=== PATIENT | male | born 1945 | race Caucasian/White ===

== ENCOUNTER 2018-01-30 05:29 | Day surgery (SDC) | payer MEDICARE, OTHER ==
[~2018-01-30] VITALS: Ht 177.8 cm; Wt 70.3 kg
[~2018-01-30 05:29] MED LIST: ALBU90OI INH; Amlodipine-Ben1 EAC1 PO; DONE10 PO; FLONASE SENSIM9.9 ML; LOVA40 PO; TERA5 PO; VITAMIN B122500 MCG PO
== END 2018-01-30 23:08 | disposition home or self-care (01) ==
LOC: ORSCMMR 05:29 → ORD 07:30 → ORSCMMR 23:08
PROVIDERS: Surgery
PROC: 0YU50JZ Supplement Right Inguinal Region with Synthetic Substitute, Open Approach (ICD-10-PCS; principal; 2018-01-30 07:30)
DX: K40.90 Unilateral inguinal hernia, without obstruction or gangrene, not specified as recurrent (principal); I10 Essential (primary) hypertension; J44.9 Chronic obstructive pulmonary disease, unspecified; F17.210 Nicotine dependence, cigarettes, uncomplicated; Z79.899 Other long term (current) drug therapy
CPT/HCPCS: C1781; J0690; J2250; J3010; J7120

== ENCOUNTER 2020-03-13 15:20 | Inpatient (IN) | payer OTHER ==
[~2020-03-13] VITALS: Ht 177.8 cm; Wt 55.8 kg
[~2020-03-13 15:20] MED LIST changes: -LOVA40 PO; +Lovastatin20 MG PO
[2020-03-13 16:13] LABS: BASOPHILS ABSOLUTE AUTO 0.03 K/mm3 (0.00-0.23); BASOPHILS PERCENT AUTO 0 % (0-2); EOSINOPHILS ABSOLUTE AUTO 0.13 K/mm3 (0.00-0.68); EOSINOPHILS PERCENT AUTO 2 % (0-6); Hemoglobin 11.8 g/dL (13.5-17.5); IMMATURE GRAN ABSOLUTE AUTO 0.02 K/mm3 (0.00-0.10); IMMATURE GRAN PERCENT AUTO 0 % (0-1); LYMPHOCYTES ABSOLUTE AUTO 0.89 K/mm3 (0.84-5.20); LYMPHOCYTES PERCENT AUTO 11 % (21-46); MONOCYTES ABSOLUTE AUTO 0.73 K/mm3 (0.16-1.47); MONOCYTES PERCENT AUTO 9 % (4-13); Mean Corpuscular HGB 30.6 pg (26.0-34.0); Mean Corpuscular HGB Conc 31.1 g/dL (31.5-36.5); Mean Corpuscular Volume 99 fL (80-100); Mean Platelet Volume 10.1 fL (9.1-12.4); NEUTROPHILS ABSOLUTE AUTO 6.66 K/mm3 (1.96-9.15); NEUTROPHILS PERCENT AUTO 79 % (41-73); Platelet Count 255 K/mm3 (150-400); RDW Coefficient Variation 13.6 % (11.7-14.2); Red Blood Cell Count 3.85 M/mm3 (4.30-5.90); White Blood Cell Count 8.46 K/mm3 (4.00-11.30)
[2020-03-13 16:33] LABS: Alanine Aminotransfer (ALT/SGP 24 U/L (12-78); Albumin, Blood 3.2 g/dL (3.4-5.0); Alk Phos 91 U/L (50-136); Anion Gap 1 mmol/L (6-16); Aspartate Aminotrans (AST/SGOT 22 U/L (12-37); Bilirubin, Total 0.5 mg/dL (0.1-1.0); Blood Urea Nitrogen 21 mg/dL (8-24); Bun/Creatinine Ratio 25.8 (12.0-20.0); CO2, Blood 37 mmol/L (21-32); Calcium, Blood 8.6 mg/dL (8.5-10.1); Chloride, Blood 104 mmol/L (98-108); Creatinine, Blood 0.81 mg/dL (0.60-1.20); Globulin, Blood 3.3 g/dL (2.2-4.0); Glomerular Filtration Rate >60 (60-); Glucose, Blood 98 mg/dL (70-99); Potassium, Blood 4.2 mmol/L (3.5-5.5); Sodium, Blood 142 mmol/L (136-145); Total Protein, Blood 6.5 g/dL (6.4-8.2)
[2020-03-13] MEDS ORDERED: Primidone50 MG PO (19:24)
[2020-03-13 20:43] LABS: PCO2 Arterial 65.9 mmHg (35-45); PO2 Arterial 65.7 mmHg (80-100); pH Blood Arterial 7.35 (7.35-7.45)
[2020-03-13] MEDS ORDERED: ALBU2.5V5 INH (22:23)
--- NOTE | 2020-03-13 22:51 | NUR ---
CALLED DEBBY, PT'S AND COMPLETED ADMISSION.
--- NOTE | 2020-03-13 23:28 | NUR ---
PT NEW ADMIT FROM ER. PT ARRIVED VIA STRETCHER TO UNIT AT 2000. AUDIBLE WHEEZES AND CONGESTION HEARD WITHOUT THE STETHOSCOPE. PT BREATHING RATE AROUND 18 BREATHS PER MIN. PT ARRIVED TO UNIT WITH 2 L O2 VIA NASAL CANNULA. PT RECIEVED LASIX IV IN THE ER. PT NOTED TO HAVE URINE URGENCY. I PROVIDED PT A URINAL HE APPEARED TOO WEAK TO AMBULATE TO BATHROOM. PT STOOD AT EDGE OF BED AT THIS TIME TO USE URINAL. PT'S HANDS TREMBLES AND WEAK TO HOLD URINAL. PT ASSISTED TO LAY BACK IN BED. PT'S OXYGEN DESATTED TO AROUND 68% TO LOW 70% I INCREASED PT O2 TO 4L. O2 CAME UP TO ONLY HIGH 70'S AND DYSPENIC. GAME AGENT- YESENIA NOTIFIED. VITALS TAKEN. PT'S O2 IN THE MID 80'S. RAPID RESPONSIVE TEAM CALLED AT 2027. NEB TREATMENT GIVEN WITH 4L VIA NC. HOSPITALISTAngely SPEAR ORDERED SOLUMETEROL AND BIPAP. PT BREATHING RATE AROUND 17 BREATHS PER MIN AFTER NEB TREATMENT GIVEN. O2 SAT CAME UP TO THE LOW 90'S. PT CONSTANTLY HAVE TO URINATE AND HAS TRIED TO GET UP FROM BED MULTIPLE TIMES. REDIRECTION AND RE-ASSURANCE PROVIDED. BED ALARM ON SINCE ADMISSION. WILL CONTINUE TO MONITOR.
[2020-03-14 02:42] LABS: Source, Urine Clean Catch
[2020-03-14 02:45] LABS: Bilirubin, Urine Neg (Neg); Blood, Urine 5+ (Neg); Glucose Qualitative, Urine Neg (Neg); Ketones, Urine Neg (Neg); Leukocyte Esterase, Urine Neg (Neg); Nitrite, Urine Neg (Neg); Protein, Urine 2+ (Neg); Urobilinogen, Urine NORM (Normal)
[2020-03-14 03:00] LABS: Appearance, Urine Hazy (Clear); Color, Urine Yellow (P-Yellow)
[2020-03-14 03:03] LABS: Amorphous Light (0-Heavy); Red Blood Cells, Urine 50-100 /hpf (0-2); Squamous Epithelial Cells Not Seen /hpf (Few)
[2020-03-14 03:05] LABS: Bacteria Few /hpf; White Blood Cells, Urine 0-2 /hpf (0-5)
--- NOTE | 2020-03-14 04:08 | NUR ---
SPECIAL WEAPONS UNIT OFFICER SUMMARY PT A/O X1 TO SELF. OCCASIONAL HALLCINATION. PT ONE TIME POINTED TOWARDS THE WALL AND ASKED "WHO IS HE?" WHEN THERE WAS NOBODY THERE. OFTEN CONFUSED AND FIGITY. PT HAS PULLED OFF CONT BIOX MULTIPLE TIMES AND HAS ATTEMPTED TO TAKE OFF MASK FREQUENLTY.
[2020-03-14 06:46] LABS: Anion Gap 6 mmol/L (6-16); Blood Urea Nitrogen 24 mg/dL (8-24); Bun/Creatinine Ratio 27.9 (12.0-20.0); CO2, Blood 35 mmol/L (21-32); Calcium, Blood 9.1 mg/dL (8.5-10.1); Chloride, Blood 104 mmol/L (98-108); Creatinine, Blood 0.86 mg/dL (0.60-1.20); Glomerular Filtration Rate >60 (60-); Glucose, Blood 133 mg/dL (70-99); Potassium, Blood 3.9 mmol/L (3.5-5.5); Sodium, Blood 145 mmol/L (136-145)
--- NOTE | 2020-03-14 17:00 | NUR ---
PT AOX3 AND COOEPERATIVE OF CARE. START OF SHIFT PT WAS ON BIPAP AND SLEEPING HEAVILY. PT DID NOT WANT TO AROUSE, THEN LATER IN THE MORNING RT WENT INTO ROOM TO GET PT OF BIPAP AND PT WOKE UP AND BECAM MUCH MORE ALERT. PT HAS BEEN TALKING TODAY AND WAS ORDERED A DIET. PT ATE SOME OF HIS FOOD AND HAS DID WELL DRINKING. PT HAS BEEN TAKING A LONG NAP AT THIS TIME. PT HAS HIGH FLOW CANULA AT 3L AND HAS DONE WELL O2 @94-96% WILL CONTINUE TO MONITOR.
--- NOTE | 2020-03-15 17:44 | NUR ---
PATIENT A/OX3, FORGETFUL AT TIMES AND NEEDS REMINDERS ABOUT PLAN OF CARE. UP WITH FWW AND 1 ASSIST. MAINTAINING SATS 89 TO 93% ON 4LO2 VIA NC. LUNGS DIM THROUGHOUT, OCCASIONAL NONPRODUCTIVE COUGH. DENIES ANY PAIN. CALM AND COOPERATIVE WITH CARE. TOLERATING REGULAR DIET. CALM AND COOPERATIVE WITH CARE. FALL PRECAUTIONS PER UNIT PROTOCOL.
--- NOTE | 2020-03-16 07:22 | NUR ---
MANAGER PROGRAMMING SUMMARY Again, just like previous night, patient's 02 sats drop down into high 80's as soon as he wakes up and begins talking. Once he falls asleep, 02 saturation goes from 92% to 98%. Therefore, oxygen has remained at 4 liters NC. Educated patient on need to limit his talking at this time so that he can maintain needed oxygen. Patient is much more alert and oriented than previous night. Anxious to get hunt catheter out. No complaints of discomfort.
--- NOTE | 2020-03-16 17:39 | NUR ---
PATIENT A/OX4, CAN BE FORGETFUL AT TIMES. UP WITH FWW, GB AND 1 ASSIST. AMBULATED IN HALLS X2 THIS SHIFT. CONT BIOX, 4LO2 TO MAINTAIN SATS. LUNGS CLEAR/DIM, NONPRODUCTIVE COUGH. IV TO L FA WNL AND SL. TAKES PILLS WHOLE WITH H20. DENIES ANY PAIN OR DISCOMFORT. FALL PRECAUTIONS PER UNIT PROTOCOL. CALM AND COOPERATIVE WITH CARE, CALLS APPROPRIATELY FOR ASSISTANCE.
--- NOTE | 2020-03-17 01:35 | NUR ---
Patient has had 4-5 liquid stools since around 1999 tonight. Call placed to night hospitalist requesting c diff panel. Will continue supportive care.
[2020-03-17 05:20] LABS: Hematocrit 41.7 % (37.0-53.0); Hemoglobin 13.3 g/dL (13.5-17.5); Mean Corpuscular HGB 30.4 pg (26.0-34.0); Mean Corpuscular HGB Conc 31.9 g/dL (31.5-36.5); Mean Platelet Volume 10.4 fL (9.1-12.4); Platelet Count 246 K/mm3 (150-400); RDW Coefficient Variation 13.3 % (11.7-14.2); RDW Standard Deviation 47.5 fL (35.1-46.3); Red Blood Cell Count 4.38 M/mm3 (4.30-5.90); White Blood Cell Count 6.71 K/mm3 (4.00-11.30)
[2020-03-17 05:34] LABS: Anion Gap 5 mmol/L (6-16); Blood Urea Nitrogen 33 mg/dL (8-24); CO2, Blood 34 mmol/L (21-32); Chloride, Blood 97 mmol/L (98-108); Creatinine, Blood 0.73 mg/dL (0.60-1.20); Glomerular Filtration Rate >60 (60-); Glucose, Blood 106 mg/dL (70-99); Potassium, Blood 4.6 mmol/L (3.5-5.5); Sodium, Blood 136 mmol/L (136-145)
[2020-03-17 05:39] LABS: Mean Corpuscular Volume 95 fL (80-100)
--- NOTE | 2020-03-17 06:45 | NUR ---
ELECTRIC TRACK SWITCH MAINTAINER SUMMARY lab for c diff came up negative. explained to patient that often, patients will get diarrhea when on antibiotics. If this persists today, will ask day RN to speak to MD about perhaps an antidiarrheal. Patient anxious about when he may go home.
--- NOTE | 2020-03-17 10:30 | NUR ---
PT SATS DROP WHEN HE REMOVES HIS O2 DOWN TO 85%. GOOD WAVEFORM ON THE PULSE OX PLACED O2 ON THE PT AND SATS SLOWLY RECOVERED TO 89-92% ON 7L THEN REDUCED BACK TO 4L VIA NC. PT NOW MAINTAINING SATS 89-92% ON 4L. CALLED RT MENDOZA D/T PT CORD FOR THE PULSE OX BEING FRAYED. RT CAME AND CHANGED OUT THE CORD PROMPTLY. SATS IN THE 89-92% RANGE ON 4L VIA NC WITH THE NEW CORD.
--- NOTE | 2020-03-17 11:45 | NUR ---
PT SLEEPING SOUNDLY WITH HIS O2 OFF SATS ON THE CONT PULSE OX READ 93-94% ON ROOM AIR. LEFT O2 OFF AT THIS TIME.
--- NOTE | 2020-03-17 12:20 | NUR ---
PT WOKE FOR LUNCH. O2 STILL NOT IN PLACE, O2 SATS 95% ON ROOM AIR. PT TRANSFERED TO THE BSC SATS DROPPED TO 88% WITH THE TRANSFER (ON ROOM AIR) RECOVERED TO 90% QUICKLY. TRANSFERED BACK TO BED SATS MAINTAINED 93%. PT SITTING UP TAKLING TO STAFF AND PREPARING FOR LUNCH, WHILE EATING PT SATS DROPPED TO 85% ON ROOM AIR PLACED ON O2 VIA NC. CALLED RT TO DISCUSS TITRATION OF PT O2 TO MAINTAIN SATS. REDUCED FLOW TO 3L VIA NC WHILE PT IS UP EATING, TALKING AND AMBULATING. WILL CTM WITH THE ASSISTANCE OF RT.
[2020-03-17 13:20] LABS: Adenovirus Not Detected (NOT DETECT); Bordetella pertussis Not Detected (NOT DETECT); Chlamydophila pneumoniae Not Detected (NOT DETECT); Coronavirus 229E Not Detected (NOT DETECT); Coronavirus HKU1 Not Detected (NOT DETECT); Coronavirus NL63 Not Detected (NOT DETECT); Coronavirus OC43 Not Detected (NOT DETECT); Human Metapneumovirus Not Detected (NOT DETECT); Human Rhinovirus/Enterovirus Not Detected (NOT DETECT); Influenza A/2009-H1 Not Detected (NOT DETECT); Influenza A/H1 Not Detected (NOT DETECT); Influenza A/H3 Not Detected (NOT DETECT); Influenza B Not Detected (NOT DETECT); Mycoplasma pneumoniae Not Detected (NOT DETECT); Parainfluenza Virus 1 Not Detected (NOT DETECT); Parainfluenza Virus 2 Not Detected (NOT DETECT); Parainfluenza Virus 3 Not Detected (NOT DETECT); Parainfluenza Virus 4 Not Detected (NOT DETECT); Respiratory Syncytial Virus Not Detected (NOT DETECT)
--- NOTE | 2020-03-17 15:49 | NUR ---
Pt resting in bed and is A&OX@2/3. Pt denies pain and dyspnea at this time. Pt engages in intermittent non sensical conversation unrelated to topic of discussion. Offered therapeutic listening as Pt discusses concerns with this RN validating concerns. Called and spoke with Pt's Anu. Updated Anu on plan of care and recommendations. Engaged in therapeutic discussion regarding AD/POLST and advanced care planning. Educated Anu on POLST and life sustaining measures including risk factors. Anu reports plan to discuss with Pt when he comes home. Instructed Anu once POLST is filled out to take to Pt's PCP for MD signature. Educated Anu on the importance of routine conversations with Pt's PCP regarding disease process. Educated on the importance of developing multiple plans with Pt's PCP as disease process takes its coarse. Anu expresses appreciation of call. No other concerns reported at this time. Spoke with Bedside RN Gloria and discussed case. Gloria will place POLST in Pt's belonging's bag to go home with. Spoke with Specialty Person Brenda and discussed case. Relayed Anu's request for Pt to recieve small portable oxygen concentrator if Pt requires home O2. Palliative Care will remain available.
--- NOTE | 2020-03-17 20:20 | NUR ---
SHIFT SUMMARY- PT IS SATTING GREATER THAN 90% ON 2L VIA NC, NO S&S OF DISTRESS ARE NOTED, LOOSE STOOLS STOPPED LATE IN THE MORNING. PT ALERT AND OREINTED HOWEVER SOMETIMES HE HAS NONSENSICAL SPEAKING. PT IS PLEASENT, FORGETS TO CALL SO BED ALARM SET FOR SAFETY. PT CURRENTLY IN BED, CALL LIGHT IN REACH, NO S&S OF DISTRESS BEDSIDE REPORT COMPLETED.
--- NOTE | 2020-03-18 06:26 | NUR ---
SHIFT SUMMARY PT HAD DIFFICULTY SLEEPING LAST NIGHT, WAS UP MOST THE NIGHT. AOX3-ANSWERS QUESTIONS APPROPRIATE. FOLLOWS DIRECTIONS. DENIES PAIN OR N/V. REPORTS DYSPNEA WORSE W/ACTIVITY. E/U RESPIRATIONS. LUNGS SOUND DIM T/O. SPO2 >90% ON 2L O2, TESTED SPO2 ON RA W/TRANSFER TO BSC & SPO2 DROPPED TO 85%, REPLACED 2L O2 & SPO2 WENT BACK TO >90%. SOMETIMES SPO2 WILL DROP TO 88% W/ACTIVITY ON 2L O2. BED ALARM IN PLACE FOR PT FORGETS TO USE CALL LIGHT. WCTM.
[2020-03-18] MEDS ORDERED: Prinivil10 MG PO (14:00)
[2020-03-18] MEDS ORDERED: LOPE2C PO (14:01)
[2020-03-18] MEDS ORDERED: Florastor250 MG PO (14:02)
[2020-03-18] MEDS ORDERED: FLUT1DIS5 INH (14:03)
[2020-03-18] MEDS ORDERED: PRED10 PO (14:06)
--- NOTE | 2020-03-18 14:52 | NUR ---
DISCHARGE INSTRUCTIONS GIVEN TO PATIENT WELL EDUCATIONAL MATERIAL. ALL QUESTIONS ANSWERED. IV REMOVED. [facility] TO DELIVER WHEELCHAIR TO PATIENT HERE PRIOR TO DISCHARGING. [facility] TO TRANSPORT PATIENT HOME AT APPROX 1530.
--- NOTE | 2020-03-18 15:41 | NUR ---
[facility] CAME AND DELIVERED WHEELCHAIR TO PATIENT AT HIS ROOM AT 1525. AWAITING TRANSPORT AT THIS TIME.
--- NOTE | 2020-03-18 15:56 | NUR ---
patient picked up by [facility] at 1553. escorted out of hospital in wheelchair by [facility].
== END 2020-03-18 15:56 | disposition home health service (06) | DRG 193 ==
LOC: ER 15:20 → MEDS 15:21
PROVIDERS: Emergency Medicine; Family Medicine; Nurse Practitioner Acute Care; ADMIT Internal Medicine
PROC: 5A09357 Assistance with Respiratory Ventilation, Less than 24 Consecutive Hours, Continuous Positive Airway Pressure (ICD-10-PCS; principal; 2020-03-13)
DX: J18.9 Pneumonia, unspecified organism (principal); G92 Toxic encephalopathy; A41.9 Sepsis, unspecified organism; J96.01 Acute respiratory failure with hypoxia; K52.1 Toxic gastroenteritis and colitis; F03.90 Unspecified dementia, unspecified severity, without behavioral disturbance, psychotic disturbance, mood disturbance, and anxiety; I10 Essential (primary) hypertension; E78.5 Hyperlipidemia, unspecified; Z87.891 Personal history of nicotine dependence; I16.0 Hypertensive urgency; R33.9 Retention of urine, unspecified; J43.9 Emphysema, unspecified; T36.95XA Adverse effect of unspecified systemic antibiotic, initial encounter; Y92.239 Unspecified place in hospital as the place of occurrence of the external cause
CPT/HCPCS: 0099U; 36415; 36600; 51702; 71045; 71046; 80048; 80053; 81001; 82803; 83605; 83880; 84145; 84484; 85025; 85027; 85379; 87040; 87070; 87086; 87205; 87493; 92610; 93005; 93010; 93306; 94640; 94660; 94760; 94762; 96365; 96366; 96367; 96372; 96375; 96376; 97110; 97116; 97162; 97165; 97530; 97535; 99285-25; A9270; A9270-GY; G0378; J0456; J0696; J1650; J1940; J2920; J2930; J7050

== ENCOUNTER 2021-02-25 08:33 | Day surgery (SDC) | payer OTHER ==
[~2021-02-25 08:33] MED LIST changes: +ALBU2.5V5 INH; +DONEPEZIL HCL10 MG PO; +FLUT1DIS5 INH; +Flonase 0.05% N16 GM; +Florastor250 MG PO; +LOPE2C PO; +Lexapro 10 mg T10 MG PO; +PRED10 PO; +Primidone50 MG PO; +Prinivil10 MG PO
--- NOTE | 2021-02-25 09:29 | NUR ---
02/25/21 0929 Ángel Blankenship History, Chart, Medications and Allergies reviewed before start of procedure. MONITOR INTACT WITH CONTINUOUS PULSE OXIMETRY AND INTERMITTENT BP. 3-LEAD EKG REVIEWED WITH PHYSICIAN PRIOR TO START OF PROCEDURE. O2 VIA N/C INTACT THROUGHOUT SEDATION/PROCEDURE. PATIENT DETERMINED TO BE ASA APPROPRIATE FOR PROPOFOL SEDATION PRIOR TO START OF PROCEDURE BY DR. RIOS.
--- NOTE | 2021-02-25 10:31 | NUR ---
Discharge instructions reviewed with patient. Patient verbalizes understanding. Copy given to patient to take home. Patient States Post-Procedure ride home has been arranged. Discharged via wheelchair to private car for ride home.
== END 2021-02-25 10:33 | disposition home or self-care (01) ==
LOC: ORSCMMR 08:33 → ORD 09:30 → ORSCMMR 10:33
PROVIDERS: Internal Medicine Gastroenterology
PROC: 0DJD8ZZ Inspection of Lower Intestinal Tract, Via Natural or Artificial Opening Endoscopic (ICD-10-PCS; principal; 2021-02-25 09:30)
DX: R19.5 Other fecal abnormalities (principal); K57.30 Diverticulosis of large intestine without perforation or abscess without bleeding; F32.9 Major depressive disorder, single episode, unspecified; J44.9 Chronic obstructive pulmonary disease, unspecified; Z87.891 Personal history of nicotine dependence; E78.00 Pure hypercholesterolemia, unspecified; Z79.899 Other long term (current) drug therapy
CPT/HCPCS: J0461; J2704; J7120

== ENCOUNTER 2021-05-27 09:39 | Day surgery (SDC) | payer OTHER | END 2021-05-27 10:29 | disposition home or self-care (01) | LOC: ORSCSDS 09:39 | DX: J32.4 Chronic pansinusitis (principal); Z53.9 Procedure and treatment not carried out, unspecified reason ==

== ENCOUNTER → 2022-02-08 | Outpatient (CLI) | payer OTHER ==
[2022-02-08 16:20] LABS: BASOPHILS ABSOLUTE AUTO 0.03 K/mm3 (0.00-0.23); BASOPHILS PERCENT AUTO 1 % (0-2); EOSINOPHILS ABSOLUTE AUTO 0.35 K/mm3 (0.00-0.68); EOSINOPHILS PERCENT AUTO 7 % (0-6); Hematocrit 41.4 % (37.0-53.0); Hemoglobin 13.1 g/dL (13.5-17.5); IMMATURE GRAN ABSOLUTE AUTO 0.01 K/mm3 (0.00-0.10); IMMATURE GRAN PERCENT AUTO 0 % (0-1); LYMPHOCYTES ABSOLUTE AUTO 1.22 K/mm3 (0.84-5.20); LYMPHOCYTES PERCENT AUTO 25 % (21-46); MONOCYTES ABSOLUTE AUTO 0.46 K/mm3 (0.16-1.47); MONOCYTES PERCENT AUTO 9 % (4-13); Mean Corpuscular HGB 30.5 pg (26.0-34.0); Mean Corpuscular HGB Conc 31.6 g/dL (31.5-36.5); Mean Corpuscular Volume 97 fL (80-100); NEUTROPHILS ABSOLUTE AUTO 2.83 K/mm3 (1.96-9.15); NEUTROPHILS PERCENT AUTO 58 % (41-73); Platelet Count 235 K/mm3 (150-400); RDW Coefficient Variation 13.5 % (11.7-14.2); RDW Standard Deviation 48.1 fL (35.1-46.3); Red Blood Cell Count 4.29 M/mm3 (4.30-5.90)
[2022-02-08 16:56] LABS: Alanine Aminotransfer (ALT/SGP 24 U/L (12-78); Albumin, Blood 4.1 g/dL (3.4-5.0); Albumin/Globulin Ratio 1.2 (0.8-1.8); Alk Phos 103 U/L (50-136); Anion Gap 5 mmol/L (6-16); Aspartate Aminotrans (AST/SGOT 26 U/L (12-37); Bilirubin, Total 0.6 mg/dL (0.1-1.0); Blood Urea Nitrogen 25 mg/dL (8-24); Bun/Creatinine Ratio 29.5 (12.0-20.0); CO2, Blood 27 mmol/L (21-32); Calcium, Blood 9.3 mg/dL (8.5-10.1); Chloride, Blood 105 mmol/L (98-108); Cholesterol 182 mg/dL (50-200); Creatinine, Blood 0.85 mg/dL (0.60-1.20); Globulin, Blood 3.5 g/dL (2.2-4.0); Glomerular Filtration Rate >60 (60-); Glucose, Blood 106 mg/dL (70-99); HDL Cholesterol 93 mg/dL (>39); LDL/HDL RATIO 0.8; Low Density Lipoprotein Chol 78 mg/dL (0-110); Potassium, Blood 4.2 mmol/L (3.5-5.5); Sodium, Blood 137 mmol/L (136-145); Total Protein, Blood 7.6 g/dL (6.4-8.2); Triglycerides 53 mg/dL (30-160); Very Low Density Lipoprot Chol 10 mg/dL (6-32)
== END | disposition home or self-care (01) ==
LOC: LAB SHORT 13:02 → LAB 13:02
PROVIDERS: Family Medicine
DX: Z12.5 Encounter for screening for malignant neoplasm of prostate (principal); I10 Essential (primary) hypertension; E78.2 Mixed hyperlipidemia
CPT/HCPCS: 80053; 80061; 85025; G0103

== ENCOUNTER → 2023-02-22 | Outpatient (CLI) | payer OTHER ==
[2023-02-22 12:26] LABS: BASOPHILS ABSOLUTE AUTO 0.03 K/mm3 (0.00-0.23); BASOPHILS PERCENT AUTO 1 % (0-2); EOSINOPHILS ABSOLUTE AUTO 0.23 K/mm3 (0.00-0.68); EOSINOPHILS PERCENT AUTO 6 % (0-6); Hematocrit 38.4 % (37.0-53.0); Hemoglobin 12.7 g/dL (13.5-17.5); IMMATURE GRAN ABSOLUTE AUTO 0.01 K/mm3 (0.00-0.10); IMMATURE GRAN PERCENT AUTO 0 % (0-1); LYMPHOCYTES ABSOLUTE AUTO 0.98 K/mm3 (0.84-5.20); LYMPHOCYTES PERCENT AUTO 24 % (21-46); MONOCYTES ABSOLUTE AUTO 0.39 K/mm3 (0.16-1.47); MONOCYTES PERCENT AUTO 10 % (4-13); Mean Corpuscular HGB Conc 33.1 g/dL (31.5-36.5); Mean Corpuscular Volume 94 fL (80-100); Mean Platelet Volume 10.1 fL (9.1-12.4); NEUTROPHILS ABSOLUTE AUTO 2.42 K/mm3 (1.96-9.15); NEUTROPHILS PERCENT AUTO 60 % (41-73); Platelet Count 272 K/mm3 (150-400); RDW Coefficient Variation 13.9 % (11.7-14.2); RDW Standard Deviation 48.2 fL (35.1-46.3); White Blood Cell Count 4.06 K/mm3 (4.00-11.30)
[2023-02-22 15:42] LABS: Alanine Aminotransfer (ALT/SGP 17 U/L (12-78); Albumin, Blood 3.6 g/dL (3.4-5.0); Albumin/Globulin Ratio 1.1 (0.8-1.8); Alk Phos 87 U/L (50-136); Anion Gap 3 mmol/L (6-16); Aspartate Aminotrans (AST/SGOT 19 U/L (12-37); Bilirubin, Total 0.7 mg/dL (0.1-1.0); Blood Urea Nitrogen 18 mg/dL (8-24); Bun/Creatinine Ratio 24.3 (12.0-20.0); CO2, Blood 27 mmol/L (21-32); Calcium, Blood 8.9 mg/dL (8.5-10.1); Chloride, Blood 106 mmol/L (98-108); Cholesterol 180 mg/dL (50-200); Creatinine, Blood 0.74 mg/dL (0.60-1.20); Globulin, Blood 3.2 g/dL (2.2-4.0); Glomerular Filtration Rate 93 (60-); Glucose, Blood 92 mg/dL (70-99); HDL Cholesterol 89 mg/dL (>39); LDL/HDL RATIO 0.9; Low Density Lipoprotein Chol 77 mg/dL (0-110); Potassium, Blood 3.9 mmol/L (3.5-5.5); Sodium, Blood 136 mmol/L (136-145); Total Protein, Blood 6.8 g/dL (6.4-8.2); Triglycerides 70 mg/dL (30-160); Very Low Density Lipoprot Chol 14 mg/dL (6-32)
== END | disposition home or self-care (01) ==
LOC: EDSTATUS 02-06 16:35 → LAB FUT 02-06 16:35 → LAB SHORT 10:56 → LAB 10:56
PROVIDERS: Family Medicine
DX: Z12.5 Encounter for screening for malignant neoplasm of prostate (principal); I10 Essential (primary) hypertension; E78.2 Mixed hyperlipidemia
CPT/HCPCS: 80053; 80061; 85025; G0103

== ENCOUNTER 2023-11-28 12:46 | Inpatient (IN) | payer OTHER ==
[~2023-11-28] VITALS: Ht 177.8 cm; Wt 53.7 kg
[2023-11-28 13:25] LABS: BASOPHILS ABSOLUTE AUTO 0.02 K/mm3 (0.00-0.23); BASOPHILS PERCENT AUTO 0 % (0-2); EOSINOPHILS PERCENT AUTO 2 % (0-6); Hematocrit 37.8 % (37.0-53.0); IMMATURE GRAN ABSOLUTE AUTO 0.03 K/mm3 (0.00-0.10); IMMATURE GRAN PERCENT AUTO 1 % (0-1); LYMPHOCYTES ABSOLUTE AUTO 0.84 K/mm3 (0.84-5.20); LYMPHOCYTES PERCENT AUTO 15 % (21-46); MONOCYTES ABSOLUTE AUTO 0.56 K/mm3 (0.16-1.47); MONOCYTES PERCENT AUTO 10 % (4-13); Mean Corpuscular HGB 30.5 pg (26.0-34.0); Mean Corpuscular HGB Conc 31.7 g/dL (31.5-36.5); Mean Corpuscular Volume 96 fL (80-100); Mean Platelet Volume 10.2 fL (9.1-12.4); NEUTROPHILS ABSOLUTE AUTO 4.21 K/mm3 (1.96-9.15); NEUTROPHILS PERCENT AUTO 73 % (41-73); Platelet Count 188 K/mm3 (150-400); RDW Coefficient Variation 13.5 % (11.7-14.2); Red Blood Cell Count 3.94 M/mm3 (4.30-5.90); White Blood Cell Count 5.76 K/mm3 (4.00-11.30)
[2023-11-28 13:48] LABS: Albumin, Blood 3.2 g/dL (3.4-5.0); Albumin/Globulin Ratio 0.9 (0.8-1.8); Bilirubin, Total 0.6 mg/dL (0.1-1.0); Bun/Creatinine Ratio 30.4 (12.0-20.0); Calcium, Blood 8.4 mg/dL (8.5-10.1); Creatinine, Blood 0.82 mg/dL (0.60-1.20); Globulin, Blood 3.4 g/dL (2.2-4.0); Potassium, Blood 4.4 mmol/L (3.5-5.5); Total Protein, Blood 6.6 g/dL (6.4-8.2)
[2023-11-28 14:09] LABS: SARS-Cov-2 (COVID-19) PCR, MMC NEGATIVE (NEGATIVE)
[2023-11-28 14:10] LABS: Influenza A Negative (NEGATIVE); Influenza B Negative (NEGATIVE)
[2023-11-28] MEDS ORDERED: CARBIDOPA-LEVO1 EAC9 PO (14:16)
[2023-11-28 14:22] LABS: Base Excess Venous 9.8 mmol/L; Bicarbonate Venous 30.9 mmol/L (24.0-30.0); PCO2 Venous 69.5 mmHg (38-42); pH Blood Venous 7.32 (7.34-7.37)
[2023-11-28 17:54] VITALS: BP 160/74
[2023-11-28] MEDS ORDERED: CARBIDOPA-LEVO1 EA15 PO (18:28)
[2023-11-28] MEDS ORDERED: MIRTAZAPINE7.5 M1 PO (18:29)
[2023-11-28] MEDS ORDERED: Primidone50 MG PO (18:30)
--- NOTE | 2023-11-28 19:33 | NUR ---
SHIFT SUMMARY: ASSUMED CARE OF PATIENT UPON HIS ARRIVAL FROM ED AT 1744. [place], A&O X 2. ATTEMPTED TO STAND PT AT BEDSIDE TO USE URINAL, REQUIRED 2 STAFF AND PATIENT WAS UNABLE DUE TO MUSCLE SPASMS AND NEAR FALLING (PARKINSONS?). TREMORS IN ALL EXTREMITIES. ON 6 L/MIN NC, CONTINUOUS OXIMETRY SHOWS SATS 90-94%. TOLERATED REGULAR DIET FOR DINNER. DENIED PAIN. ATTENDS PLACED. NO SKIN BREAKDOWN NOTED. DENIED PAIN.
[2023-11-28 19:45] VITALS: BP 138/56
[2023-11-29 04:35] VITALS: BP 166/74
[2023-11-29 05:13] LABS: Hematocrit 37.5 % (37.0-53.0); Hemoglobin 12.2 g/dL (13.5-17.5); Mean Corpuscular HGB 31.2 pg (26.0-34.0); Mean Corpuscular HGB Conc 32.5 g/dL (31.5-36.5); Mean Corpuscular Volume 96 fL (80-100); Platelet Count 199 K/mm3 (150-400); RDW Coefficient Variation 13.4 % (11.7-14.2); RDW Standard Deviation 47.4 fL (35.1-46.3); Red Blood Cell Count 3.91 M/mm3 (4.30-5.90); White Blood Cell Count 3.42 K/mm3 (4.00-11.30)
[2023-11-29 05:41] LABS: Bun/Creatinine Ratio 33.4 (12.0-20.0); Calcium, Blood 8.7 mg/dL (8.5-10.1); Creatinine, Blood 0.84 mg/dL (0.60-1.20); Potassium, Blood 4.3 mmol/L (3.5-5.5)
[2023-11-29 05:49] LABS: BAND PERCENT MAN 4 % (0-8); BASOPHILS PERCENT MAN 0 % (0-2); EOSINOPHILS PERCENT MAN 0 % (0-6); LYMPHOCYTES ABSOLUTE MAN 0.41 K/mm3 (0.84-5.20); LYMPHOCYTES PERCENT MAN 12 % (21-46); MONOCYTES ABSOLUTE MAN 0.34 K/mm3 (0.16-1.47); MONOCYTES PERCENT MAN 10 % (4-13); NEUTROPHILS ABSOLUTE MAN 2.66 K/mm3 (1.96-9.15); SEG NEUTROPHILS PERCENT MAN 74 % (41-73); TOTAL CELLS COUNTED 100
[2023-11-29 05:57] VITALS: BP 153/73
[2023-11-29 07:35] VITALS: BP 171/70
--- NOTE | 2023-11-29 09:26 | NUR ---
SHIFT SUMMARY PT IS LETHARGIC, BUT AROUSES WITH REPEAT STIMULATION. ELIU IS ORIENTED TO SELF ONLY. VSS ON 6L NC, O2 SATS 97%. NOTIFIED RT ABOUT PT HAVING ORDER FOR BIPAP. SPASTIC, UNCONTROLLABLE MOVEMENTS IN ALL EXTREMITIES. AROUND 0200, THIS RN NOTICED PT'S HR DROPIING INTO THE 40'S, CALLED MD, SEE NEW ORDERS. 0500, PT IS SUSTAINING HR IN THE MID 30'S PER TELEMETRY. NOTIFIED AGAIN, THIS RN WAS TOLD TO JUST WATCH PT FOR NOW, NO NEW ORDERS GIVEN. 0550, FIELD ASSESSOR, CALLED MEDICAL FLOOR PRINTING SUPERVISOR TO NOTIFY HER OF THIS SAID PT. VITAL SIGNS OBTAINED AT 0557, SEE EMAR. PT ASYMPTOMATIC. CONTINOUS PULSE OX IN PLACE. CONTINENT/INCONTINENT, USED URINAL ONCE WITH ASSISTANCE. BRIEF IN PLACE. URINE CONCENTRATED. NO BM THIS SHIFT. BED IN LOWEST POSITION, CALL LIGHT WITHIN REACH. PT DOES NOT USE CALL LIGHT APPROPRIATELY, BED ALARM SET FOR PT'S SAFETY. DROPLET PRECAUTIONS MAINTAINED FOR RSV INFECTION.
[2023-11-29 11:27] VITALS: BP 156/74
--- NOTE | 2023-11-29 11:27 | NUR ---
ARRIVAL TO PCU: Report recieved from [facility] on med floor. Patient arrived to PCU in his bed. He is alert and oriented x3. He has a history of parkinsons, when he raises his arms the movements are uncoordinated with some jerking, the states it is better than it was yesterday. The states at baseline the patient is able to ambulate withpout any assistive devices, but for the last couple of days he has been getting progressively weaker. He denies pain at this time. HRR, SB with a BBB and PACs. Per telemetry patients heart rate was dropping as low as the 30s while he is sleeping. LS DIM and coarse T/O, pt had a coarse NPC. He is on an oxygen mask at 7 L, after a good cough RT was able to slowly titrate him down to 4l. states patient has nasal polyps, therefore NC may not work as well for him. BT+. PPP. VSS. at the bedside to provide history. Patient denies other needs at this time, he is just tired and would like to rest.
--- NOTE | 2023-11-29 12:04 | NUR ---
AM NOTE/TRANSFER: ASSUMED CARE OF PT THIS AM AFTER RECEIVING REPORT FROM [facility]AN [facility]D AT APPROX 0740. PT IS LETHARGIC, ORIENTED x3-4, SOFT SPOKEN AND DIFFICULT TO UNDERSTAND W/MASK ON. PT APPEARS TO BECOME FRUSTRATED WHEN ASKED TO REPEAT HIMSELF OR WHEN HE EXPERIENCES TREMORS IN HIS EXTREMITIES. UNCONTROLLED, SPASTIC MOVEMENTS NOTED. O2 SATS MOSTLY 88-92% ON BIPAP W/10 L BLEED IN, RESPIRATIONS SHALLOW AND APPEAR UNLABORED. BRADYCARDIA ON MONITOR, RATE RANGING 30s-50s, PT DENIES CHEST PAIN, ASYMPTOMATIC. PER REPORT, AN ATTEMPT WAS MADE TO ASSIST PT TO STANDING POSITION FOR URINAL USE BUT PT WAS TOO WEAK TO STAND AND WAS ASSISTED BACK TO BED. PT CHANGED TO PCU STATUS AND TRANSFERED W/OUT INCIDENT, REPORT HAS BEEN GIVEN TO MIKAYLA Deng RN.
[2023-11-29 15:10] VITALS: BP 158/79
--- NOTE | 2023-11-29 15:30 | NUR ---
Update: Patient became hypoxic his saturations dropped down into the low 80s high 70s. The oxygen mask was titrated up to 11 L with no improvement initially, but after asking the patient to take a deep breath he started to cough and was able to get out copius amounts of thick ernst sputum that was suctioned out. His oxygen saturations immediately improved into the high 90s. RT is at bedside. Patient is comfortable at this time, other VSS. Patient assisted with the urinal. He denies other needs. Call light in reach. Bed alarm on for safety.
--- NOTE | 2023-11-29 18:45 | NUR ---
SUMMARY: Patient was transferred down from medical floor for worsening respiratory status. He has been alert and oriented x3, T/O the shift. He has jerking movements when attempting controlled movements with his arms. No C/O pain. HRR, he has been in SR with a rate in the 50s-60s WA and 40s when asleep. LS DIM with rhonchi and insp/exp wheezing. He has a coarse thick PC with ernst sputum. He has been high 90s on 4l via oxy mask, he does occasionally desaturate when he needs to cough and get sputum up. BT+, he is chachetic. He only has two teeth and has a difficulty eating-soft diet has been ordered for him and he has been tolerating it well. He has attends in place, but has been calling to use the urinal. No other changes this shift. Will report to oncoming RN.
[2023-11-29 19:58] VITALS: BP 164/67
[2023-11-30 00:01] VITALS: BP 173/67
--- NOTE | 2023-11-30 00:39 | NUR ---
ASSUMPTION OF CARE: THIS RN ASSUMED CARE OF PT AT APPROX 1900. BEDSIDE REPORT COMPLETED. PT ALERT, SITTING UP IN BED. ORIENTED TO SELF, PERSON, PLACE, AND SITUATION. CONVERSANT W/ STAFF. ON OXYGEN MASK AT SHIFT START W/ 2L SUPPLEMENTAL O2. SINUS SHIRA ON TELE, BP STABLE. ABLE TO VOID IN URINAL W/ ASSISTANCE AT START OF SHIFT, TOLERATED A SMALL, SOFT SNACK. RESTING IN BED AT THIS TIME ON BIPAP W/ 7L O2. CALL LIGHT IN REACH, BED ALARM ON FOR PT SAFETY.
[2023-11-30 03:18] VITALS: BP 177/81
[2023-11-30 03:58] LABS: BASOPHILS ABSOLUTE AUTO 0.01 K/mm3 (0.00-0.23); BASOPHILS PERCENT AUTO 0 % (0-2); EOSINOPHILS PERCENT AUTO 0 % (0-6); Hematocrit 37.8 % (37.0-53.0); Hemoglobin 12.3 g/dL (13.5-17.5); IMMATURE GRAN ABSOLUTE AUTO 0.04 K/mm3 (0.00-0.10); IMMATURE GRAN PERCENT AUTO 0 % (0-1); LYMPHOCYTES ABSOLUTE AUTO 0.32 K/mm3 (0.84-5.20); LYMPHOCYTES PERCENT AUTO 3 % (21-46); MONOCYTES ABSOLUTE AUTO 0.44 K/mm3 (0.16-1.47); MONOCYTES PERCENT AUTO 3 % (4-13); Mean Corpuscular HGB 31.1 pg (26.0-34.0); Mean Corpuscular HGB Conc 32.5 g/dL (31.5-36.5); Mean Corpuscular Volume 96 fL (80-100); Mean Platelet Volume 10.4 fL (9.1-12.4); NEUTROPHILS ABSOLUTE AUTO 11.96 K/mm3 (1.96-9.15); NEUTROPHILS PERCENT AUTO 94 % (41-73); Platelet Count 230 K/mm3 (150-400); RDW Coefficient Variation 13.4 % (11.7-14.2); RDW Standard Deviation 47.2 fL (35.1-46.3); Red Blood Cell Count 3.96 M/mm3 (4.30-5.90); White Blood Cell Count 12.77 K/mm3 (4.00-11.30)
[2023-11-30 04:17] LABS: Albumin, Blood 3.2 g/dL (3.4-5.0); Anion Gap 3 mmol/L (6-16); Blood Urea Nitrogen 29 mg/dL (8-24); Bun/Creatinine Ratio 39.8 (12.0-20.0); CO2, Blood 36 mmol/L (21-32); Calcium, Blood 9.1 mg/dL (8.5-10.1); Chloride, Blood 105 mmol/L (98-108); Creatinine, Blood 0.73 mg/dL (0.60-1.20); Glomerular Filtration Rate 93 (60-); Glucose, Blood 137 mg/dL (70-99); Phosphorus, Blood 3.4 mg/dL (2.5-4.9); Potassium, Blood 4.3 mmol/L (3.5-5.5); Sodium, Blood 144 mmol/L (136-145)
--- NOTE | 2023-11-30 05:04 | NUR ---
END OF SHIFT NOTE: PT ABLE TO SLEEP FOR MAJORITY OF THE NIGHT ON BIPAP. MENTATION REMAINS UNCHANGED FROM ASSUMPTION OF CARE - ORIENTED X3. PT ABLE TO COMMUNICATE NEEDS W/ STAFF. UNCOORDINATED, JERKING MOVEMENTS OBSERVED; PT W/ HX PARKINSONS. HR SUSTAINING 30'S THIS AM, TOUCHING LOW 30 BPM. SINUS SHIRA ON TELE. PT ASYMPTOMATIC, RESTING IN BED BUT ABLE TO TALK W/ STAFF WHEN AWOKEN. SBP 160-170'S. SPO2 >93% ON BIPAP 12/6 W/ 7L O2. VERY MINIMAL SPUTUM PRODUCTION. AFEBRILE. ABLE TO VOID IN URINAL NEEDED, ATTENDS IN PLACE. NO BM'S OVERNIGHT. NO OTHER NEEDS AT THIS TIME. CALL LIGHT IN REACH, BED IN LOWEST POSITION. BED ALARM ON FOR PT SAFETY. WILL REPORT TO ONCOMING RN.
--- NOTE | 2023-11-30 07:05 | NUR ---
INITIAL ASSESSMENT: Patient is resting in bed with his eyes closed, he wakes easily with verbal stimuli. He is oriented x3. He has parkinsons, when attempting to lift his arms he has very tremulous and jerky movements. He denies pain at this time. HRR, he is SB in the 40s-60s-he denies chest pain and pressure. LS DIM T/O, insp/exp wheezing in the upper lobes with rhonchi. He has a coarse PC with thick ernst sputum, he is able to expectorate with the assistance of the yonkur. BT. BONILLA. He has attends in place but is able to call to use the urinal. He was able to get himself sitting at the edge of the bed. He was assisted to stand and used staff hand for stability. He was able to stand and use the urinal, voided 300cc dark chapo urine. He is in the chair with a chair alarm in palce. Breakfast tray was set up for the patient. He denies other needs at this time. Call light in reach.
[2023-11-30 11:37] VITALS: BP 149/92
[2023-11-30 16:24] VITALS: BP 164/81
--- NOTE | 2023-11-30 18:09 | NUR ---
Summary: Patient has been alert and oriented x4 T/O the shift. He has been OOB to the chair for all meals. He still has tremulous and jerky movements intermitttently with attempted controlled movements, he has been able to feed himself after wrapping coban around the utensils for water quality control engineer. HRR, he was SB in the am in the 30s while he was still resting, HR improved into the 70s-80s while awake and moving, blood pressures have been 140s-160s systolic. LS DIM with insp/exp wheezign and rhonchi in the upper lobes, he has a PC with thick ernst sputum. He has been using the [employer] independetly. He has attends in place but has been continent using the urinal, no BM this shift. He was able to work with PT this shift. He was able to ambulate to the sink with a FWW and steady gait. No acute changes this shift, sounds like Dr. Wilson will likely downgrade the patient tomorrow if no acute changes over night. Will report to oncoming RN.
[2023-11-30 19:53] VITALS: BP 171/93
--- NOTE | 2023-11-30 20:48 | NUR ---
ASSUMPTION OF CARE: THIS RN ASSUMED CARE OF PT AT APPROX 1900. PT ALERT THIS EVENING, ORIENTED X3. ABLE TO ANSWER QUESTIONS APPROPRIATELY & COMMUNICATE NEEDS W/ STAFF. ARMS REMAIN TREMULOUS W/ JERKY MOVEMENTS DUE TO HX PARKINSONS. HR 50-60'S, SINUS ON TELE. BP STABLE. DENIES CHEST PAIN/PRESSURE. SPO2 >90% ON RA, DENIES SOB. RESPIRATIONS EVEN & UNLABORED. ABLE TO SELF SUCTION, OCCASIONAL PRODUCTIVE COUGH W/ OSORIO SECRETIONS. ABLE TO VOID IN URINAL W/ ASSISTANCE. DENIES OTHER NEEDS AT THIS TIME, SELF-REPOSITIONING IN BED. BED ALARM ON FOR SAFETY. CALL LIGHT IN REACH.
[2023-11-30 23:09] VITALS: BP 154/68
[2023-12-01 03:20] VITALS: BP 168/70
[2023-12-01 03:56] LABS: BASOPHILS PERCENT AUTO 0 % (0-2); EOSINOPHILS PERCENT AUTO 0 % (0-6); Hemoglobin 12.4 g/dL (13.5-17.5); IMMATURE GRAN ABSOLUTE AUTO 0.04 K/mm3 (0.00-0.10); IMMATURE GRAN PERCENT AUTO 0 % (0-1); LYMPHOCYTES PERCENT AUTO 4 % (21-46); MONOCYTES ABSOLUTE AUTO 0.47 K/mm3 (0.16-1.47); MONOCYTES PERCENT AUTO 5 % (4-13); Mean Corpuscular HGB 30.6 pg (26.0-34.0); Mean Corpuscular HGB Conc 32.6 g/dL (31.5-36.5); Mean Corpuscular Volume 94 fL (80-100); Mean Platelet Volume 10.4 fL (9.1-12.4); NEUTROPHILS ABSOLUTE AUTO 8.34 K/mm3 (1.96-9.15); NEUTROPHILS PERCENT AUTO 90 % (41-73); Platelet Count 235 K/mm3 (150-400); RDW Coefficient Variation 13.6 % (11.7-14.2); Red Blood Cell Count 4.05 M/mm3 (4.30-5.90); White Blood Cell Count 9.25 K/mm3 (4.00-11.30)
[2023-12-01 04:10] LABS: Anion Gap 2 mmol/L (6-16); Blood Urea Nitrogen 29 mg/dL (8-24); Bun/Creatinine Ratio 37.6 (12.0-20.0); CO2, Blood 34 mmol/L (21-32); Calcium, Blood 8.7 mg/dL (8.5-10.1); Chloride, Blood 104 mmol/L (98-108); Creatinine, Blood 0.77 mg/dL (0.60-1.20); Glomerular Filtration Rate 92 (60-); Glucose, Blood 137 mg/dL (70-99); Phosphorus, Blood 3.3 mg/dL (2.5-4.9); Potassium, Blood 4.4 mmol/L (3.5-5.5); Sodium, Blood 140 mmol/L (136-145)
--- NOTE | 2023-12-01 04:57 | NUR ---
END OF SHIFT NOTE: NO ACUTE EVENTS OVERNIGHT. PT REMAINS CONFUSED, ASKING WHERE HE IS AND MAKING STATEMENTS IF HE IS AT HOME. VITAL SIGNS REMAIN STABLE, SINUS SHIRA OVERNIGHT. ROOM AIR, OCCASIONAL PRODUCTIVE COUGH. ABLE TO VOID IN URINAL W/ ASSISTANCE AT THE BEDSIDE. NO BM'S, ATTENDS C/D/I. REPOSITIONED T/O SHIFT. NO OTHER NEEDS AT THIS TIME, RESTING IN BED. CALL LIGHT IN REACH, BED ALARM ON FOR PT SAFETY.
--- NOTE | 2023-12-01 07:20 | NUR ---
AM ASSESSMENT: Pt oriented to self, place and situation. Forgetful of limitations, POC. BP very elevated, will treat per orders. BIox upper 90's on RA at rest, when up moving does become SOB and desaturates to around 90%. Pt coached on stopping and taking deep breaths. LS diminished throughout with rhonci in the RLL. HR reg, tele shows Bradycardia at rest and NSR with activity. BT positive. PUlses palp. Pt up to chair with one assist. Chair alarm is on. Call light in reach. Will monitor.
[2023-12-01 07:41] VITALS: BP 192/75
[2023-12-01] MEDS ORDERED: PRED20 PO (08:00)
[2023-12-01] MEDS ORDERED: AZIT250 PO (08:02)
[2023-12-01] MEDS ORDERED: AMLO5 PO (08:02)
[2023-12-01] MEDS ORDERED: GUAI600T33 PO (08:04)
[2023-12-01 10:18] VITALS: BP 129/61
--- NOTE | 2023-12-01 11:00 | NUR ---
Discharge: BP was rechecked and improved after AM medications. HOme o2 eval complete and no home oxygen needed at this time. Pt and his were given verbal and written discharge instructions. Verbalized understanding. Denies questions. Rx sent to [facility]. Informed of need for follow up within one week. IV was discontinued and cath intact. Pt left via w/c with TONE CABINET ASSEMBLER. Stable at time of discharge.
== END 2023-12-01 11:18 | disposition home or self-care (01) | DRG 189 ==
LOC: ER 12:46 → MEDS 12:47 → PCU 11-29 11:16 → MEDS 11-29 11:17 → PCU 11-29 11:20 → MEDS 11-29 11:37 → PCU 11-29 11:42
PROVIDERS: Emergency Medicine; Family Medicine; Student in an Organized Health Care Education/Training Program; ADMIT Internal Medicine
DX: J96.21 Acute and chronic respiratory failure with hypoxia (principal); J44.1 Chronic obstructive pulmonary disease with (acute) exacerbation; E44.0 Moderate protein-calorie malnutrition; J96.22 Acute and chronic respiratory failure with hypercapnia; F03.90 Unspecified dementia, unspecified severity, without behavioral disturbance, psychotic disturbance, mood disturbance, and anxiety; B97.4 Respiratory syncytial virus as the cause of diseases classified elsewhere; F32.A Depression, unspecified; F02.80 Dementia in other diseases classified elsewhere, unspecified severity, without behavioral disturbance, psychotic disturbance, mood disturbance, and anxiety; E78.5 Hyperlipidemia, unspecified; I10 Essential (primary) hypertension; D64.9 Anemia, unspecified; F41.9 Anxiety disorder, unspecified; Z68.23 Body mass index [BMI] 23.0-23.9, adult; Z79.811 Long term (current) use of aromatase inhibitors; Z79.52 Long term (current) use of systemic steroids; Z79.899 Other long term (current) drug therapy; Z90.89 Acquired absence of other organs; Z98.890 Other specified postprocedural states; Z87.891 Personal history of nicotine dependence
CPT/HCPCS: 36415; 71045; 80048; 80053; 80069; 82803; 85025; 87040; 87804; 87807; 92610; 93005; 93010; 94640; 94644; 94660; 94664; 94761; 94762; 96372; 96374; 96375; 96376; 97116; 97161; 97165; 97530; 97535; 99285-25; A9270; G0378; J0360; J0696; J1650; J2930; J7512; U0002

== ENCOUNTER 2025-07-16 13:13 | Inpatient (IN) | payer OTHER ==
[~2025-07-16] VITALS: Ht 160 cm; Wt 56.3 kg
[~2025-07-16 13:13] MED LIST changes: +AMLO5 PO; +AZIT250 PO; +Acetaminophen325 M1 PO; +CARBIDOPA-LEVO1 EA15 PO; +CARBIDOPA-LEVO1 EA17 PO; +CARBIDOPA-LEVO1 EAC9 PO; +DOXY100 PO; +GUAI600T33 PO; +LISI20 PO; +MIRTAZAPINE7.5 M1 PO; +PRED20 PO; +PROBIOTIC1 EA13 PO; +Prednisone10 MG PO
[2025-07-16] MEDS ORDERED: Albuterol 2.5 MG/3 ML VIAL INH ONE (14:35)
[2025-07-16 14:37] LABS: BASOPHILS ABSOLUTE AUTO 0.02 K/mm3 (0.00-0.23); BASOPHILS PERCENT AUTO 0 % (0-2); EOSINOPHILS ABSOLUTE AUTO 0.26 K/mm3 (0.00-0.68); EOSINOPHILS PERCENT AUTO 4 % (0-6); Hematocrit 38.4 % (37.0-53.0); Hemoglobin 11.8 g/dL (13.5-17.5); IMMATURE GRAN ABSOLUTE AUTO 0.02 K/mm3 (0.00-0.10); IMMATURE GRAN PERCENT AUTO 0 % (0-1); LYMPHOCYTES ABSOLUTE AUTO 0.97 K/mm3 (0.84-5.20); LYMPHOCYTES PERCENT AUTO 13 % (21-46); MONOCYTES ABSOLUTE AUTO 0.46 K/mm3 (0.16-1.47); MONOCYTES PERCENT AUTO 6 % (4-13); Mean Corpuscular HGB Conc 30.7 g/dL (31.5-36.5); Mean Corpuscular Volume 96 fL (80-100); NEUTROPHILS ABSOLUTE AUTO 5.64 K/mm3 (1.96-9.15); NEUTROPHILS PERCENT AUTO 77 % (41-73); NRBC ABSOLUTE 0.00 K/mm3 (0.00-0.02); NRBC Auto 0.0 /100 WBC (0.0-0.2); Platelet Count 224 K/mm3 (150-400); RDW Coefficient Variation 15.4 % (11.7-14.2); RDW Standard Deviation 54.7 fL (35.1-46.3)
[2025-07-16 14:54] LABS: Alanine Aminotransfer (ALT/SGP 10.0 U/L (12-78); Albumin, Blood 3.5 g/dL (3.4-5.0); Albumin/Globulin Ratio 1.1 (0.8-1.8); Anion Gap 4.0 mmol/L (3-11); Aspartate Aminotrans (AST/SGOT 21.0 U/L (12-37); Bilirubin, Total 0.7 mg/dL (0.1-1.0); Blood Urea Nitrogen 23.0 mg/dL (8-24); CO2, Blood 35.0 mmol/L (21-32); Calcium, Blood 9.0 mg/dL (8.5-10.1); Chloride, Blood 105.0 mmol/L (98-108); Creatinine, Blood 1.01 mg/dL (0.60-1.20); Globulin, Blood 3.1 g/dL (2.2-4.0); Glucose, Blood 96.0 mg/dL (70-99); Potassium, Blood 4.2 mmol/L (3.5-5.5); Sodium, Blood 140.0 mmol/L (136-145); Total Protein, Blood 6.6 g/dL (6.4-8.2)
[2025-07-16 15:02] LABS: Influenza A, PCR NEGATIVE (NEGATIVE); Influenza B, PCR NEGATIVE (NEGATIVE); Resp Syncytial Virus, PCR NEGATIVE (NEGATIVE); SARS-Cov-2 (COVID-19) PCR, MMC NEGATIVE (NEGATIVE)
[2025-07-16] MEDS ORDERED: Levodopa/Carbidopa 100 / 25 MG Tab PO ONE (15:20)
[2025-07-16 15:27] LABS: Source, Urine Clean Catch
[2025-07-16 15:30] LABS: pH Blood Venous 7.33 (7.34-7.37)
[2025-07-16 15:32] LABS: Bilirubin, Urine Neg (Neg); Color, Urine Yellow (P-Yellow); Glucose Qualitative, Urine Neg (Neg); Ketones, Urine 1+ (Neg); Leukocyte Esterase, Urine 1+ (Neg); Protein, Urine 2+ (Neg); Specific Gravity, Urine 1.025 (1.003-1.022); Urobilinogen, Urine 1+ (Normal)
[2025-07-16] MEDS ORDERED: Ipratropium/Albuterol SulF 2.5-0.5MG/3 ML Amp INH ONE (16:00)
[2025-07-16 16:09] LABS: Red Blood Cells, Urine 0-2 /hpf (0-2)
[2025-07-16] MEDS ORDERED: CefTRIAXone Sodium 1,000 MG in NS 100 ML IV ONE (16:40)
[2025-07-16] MEDS ORDERED: Ipratropium/Albuterol SulF 2.5-0.5MG/3 ML Amp INH SCH (19:35)
[2025-07-16] MEDS ORDERED: Ondansetron HCl 2 MG / ML 2ML Vial IV PRN (19:35)
[2025-07-16] MEDS ORDERED: Albuterol 2.5 MG/3 ML VIAL INH PRN (19:40)
[2025-07-16] MEDS ORDERED: HydrALAZINE HCl 20 MG / ML 1ML Vial IV ONE (20:00)
[2025-07-16] MEDS ORDERED: Ampicillin Sod/Sulbactam Sod 3 GM in NS 100 ML IV SCH (20:00)
[2025-07-16] MEDS ORDERED: Diazepam 5 MG / ML 2ML SYR IV ONE (21:00)
[2025-07-16] MEDS ORDERED: DiphenhydrAMINE HCl 50 MG/ML 1ML Vial IV ONE (21:00)
[2025-07-16] MEDS ORDERED: Lactobacil 2-S.Thermo-Bifido 1 1 Cap PO SCH (21:00)
[2025-07-16] MEDS ORDERED: Levodopa/Carbidopa 100/25 MG Tab *CR PO SCH (21:00)
[2025-07-16 23:06] LABS: pH Blood Venous 7.35 (7.34-7.37)
[2025-07-17 00:19] VITALS: BP 143/58
[2025-07-17] MEDS ORDERED: NS 500 ML IV ONE (01:35)
[2025-07-17 02:43] LABS: C DIFFICILE DNA NEGATIVE (Negative)
[2025-07-17 05:26] VITALS: BP 182/82
--- NOTE | 2025-07-17 06:17 | NUR ---
PT CONFUSED NOT REDIRECTABLE, REPORT WAS RECIEVED FROM ER CALL LIGHT WAS WITHIN REACH IVF INFUSING WITHOUT DIFFICULTY. PT ATTEMPTING TO GET OOB WITHOUT ASSISTANCE, CONFUSED, RESTRAINTS APPLIED ORDERED. PT HAS MUMBLED SPEECH DIFFICULT TO UNDERSTAND. PT INCONTIENT OF URINE AND STOOL. PT WAS PAINTING IN STOOL.
[2025-07-17] MEDS ORDERED: Levodopa/Carbidopa 100 / 25 MG Tab PO SCH (07:30)
[2025-07-17 07:34] VITALS: BP 197/83
[2025-07-17] MEDS ORDERED: Enoxaparin 40 MG/0.4 ML SYR SC SCH (09:00)
[2025-07-17 10:25] LABS: Hematocrit 42.0 % (37.0-53.0); Hemoglobin 13.2 g/dL (13.5-17.5); Mean Corpuscular HGB Conc 31.4 g/dL (31.5-36.5); Mean Corpuscular Volume 93 fL (80-100); NRBC ABSOLUTE 0.00 K/mm3 (0.00-0.02); NRBC Auto 0.0 /100 WBC (0.0-0.2); Platelet Count 209 K/mm3 (150-400); RDW Coefficient Variation 15.5 % (11.7-14.2); RDW Standard Deviation 53.1 fL (35.1-46.3)
[2025-07-17 10:26] LABS: pH Blood Venous 7.34 (7.34-7.37)
[2025-07-17 10:42] LABS: Magnesium, Blood 2.0 mg/dL (1.6-2.4)
[2025-07-17 10:43] LABS: Anion Gap 7.0 mmol/L (3-11); Blood Urea Nitrogen 19.0 mg/dL (8-24); CO2, Blood 36.0 mmol/L (21-32); Calcium, Blood 9.0 mg/dL (8.5-10.1); Chloride, Blood 102.0 mmol/L (98-108); Creatinine, Blood 0.66 mg/dL (0.60-1.20); Glucose, Blood 102.0 mg/dL (70-99); Potassium, Blood 3.9 mmol/L (3.5-5.5); Sodium, Blood 141.0 mmol/L (136-145)
[2025-07-17 15:24] VITALS: BP 165/56
--- NOTE | 2025-07-17 18:38 | NUR ---
END OF SHIFT. PATIENT RESTING IN BED, PATIENT ASSISTED WITH URINAL AND ATTENDS CHANGE. PATIENT IS INCONTINENT, NO BM TODAY. CURRENTLY ON 4L OF O2, SATS AT 90 FOR MOST OF THE DAY. PATIENT IS NPO. AT BEDSIDE TODAY AND GIVEN UPDATES AND EDUCATION ABOUT PATIENT STATUS. PATIENT WAS ALERT TODAY AND ORIENTATED TO HIMSELF ONLY. SHAWNA VEST IN PLACE, PATIENT WAS CALM FOR MOST OF THE DAY, AND FOLLOWED SOME DIRECTION. SCD PLACED ON PATIENT.
[2025-07-17 20:48] VITALS: BP 182/76
[2025-07-17] MEDS ORDERED: HydrALAZINE HCl 20 MG / ML 1ML Vial IV PRN (20:55)
[2025-07-17 22:00] VITALS: BP 152/70
[2025-07-18 02:44] VITALS: BP 169/87
--- NOTE | 2025-07-18 06:42 | NUR ---
SHIFT SUMMARY PT ALERT TO SELF AND COOPERATIVE. PT IS IMPULSIVE AND ATTEMPTS TO GET OOB. SHAWNA AND BED ALARM IN USE. PT ON 4L OF OXYGEN BUT FREQUENTLY REMOVES NC. REPOSITIONING Q2. CONTINUING LR @ 100ml/hr. IV ABX GIVEN PER EMAR. SBP ELEVATED AND DR CALLED. ORDER GIVEN FOR HYDRALAZINE FOR SBP >180, AND WAS GIVEN WITH GOOD EFFECT. PT AFEBRILE. BED IN LOWEST POSITION AND CALL LIGHT IN REACH.
[2025-07-18 07:40] VITALS: BP 181/81
[2025-07-18 07:51] LABS: BASOPHILS ABSOLUTE AUTO 0.00 K/mm3 (0.00-0.23); BASOPHILS PERCENT AUTO 0 % (0-2); EOSINOPHILS ABSOLUTE AUTO 0.00 K/mm3 (0.00-0.68); EOSINOPHILS PERCENT AUTO 0 % (0-6); Hematocrit 39.8 % (37.0-53.0); Hemoglobin 12.8 g/dL (13.5-17.5); IMMATURE GRAN ABSOLUTE AUTO 0.02 K/mm3 (0.00-0.10); IMMATURE GRAN PERCENT AUTO 0 % (0-1); LYMPHOCYTES ABSOLUTE AUTO 0.58 K/mm3 (0.84-5.20); LYMPHOCYTES PERCENT AUTO 9 % (21-46); MONOCYTES ABSOLUTE AUTO 0.39 K/mm3 (0.16-1.47); MONOCYTES PERCENT AUTO 6 % (4-13); Mean Corpuscular HGB Conc 32.2 g/dL (31.5-36.5); Mean Corpuscular Volume 91 fL (80-100); NEUTROPHILS ABSOLUTE AUTO 5.37 K/mm3 (1.96-9.15); NEUTROPHILS PERCENT AUTO 85 % (41-73); NRBC ABSOLUTE 0.00 K/mm3 (0.00-0.02); NRBC Auto 0.0 /100 WBC (0.0-0.2); Platelet Count 223 K/mm3 (150-400); RDW Coefficient Variation 15.7 % (11.7-14.2); RDW Standard Deviation 52.5 fL (35.1-46.3)
[2025-07-18 08:13] LABS: Anion Gap 4.0 mmol/L (3-11); Blood Urea Nitrogen 20.0 mg/dL (8-24); CO2, Blood 37.0 mmol/L (21-32); Calcium, Blood 8.5 mg/dL (8.5-10.1); Chloride, Blood 100.0 mmol/L (98-108); Creatinine, Blood 0.66 mg/dL (0.60-1.20); Glucose, Blood 107.0 mg/dL (70-99); Potassium, Blood 4.1 mmol/L (3.5-5.5); Sodium, Blood 137.0 mmol/L (136-145)
--- NOTE | 2025-07-18 09:07 | NUR ---
NOTE PT BLOOD PRESSURE SBP 181. PT HAS HYDRALAZINE ORDERED PRN OVER SBP 180. SPEECH THERAPY WORKED WITH PT, REPORTED "NPO STILL CAN HAVE MEDS CRUSHED IN APPLESAUCE." PHARMACY REPORTED OK TO CRUSH PT MEDS. THIS RN GAVE MORNING MEDS ALONG WITH PT ORDERED BP MEDS. WILL RECHECK BP TO SEE IF PT BP IS OVER 180 SYSTOLIC. PT REMAINS IN SHAWNA FOR SAFETY AND FALL RISK. LR RUNNING AT 100ML/HR. LEFT VOICE MESSAGE FOR PALLIATIVE CARE.
[2025-07-18 10:13] VITALS: BP 155/98
--- NOTE | 2025-07-18 14:32 | NUR ---
CODE STATUS CHANGED TO DNR PER PHONE CONVERSATION WITH DEBBY. VERBAL ORDER OBTAINED FROM PROVIDER FOR DNR. ORDER PLACED ACCORDINGLY. BEDSIDE RN UPDATED. GOAL OF CARE IS TO CONTINUE WITH CURRENT TREATMENT PLAN. HOPE IS PT WILL SHOW IMPROVEMENT AND RETURN TO BASELINE. REPORTS PT WAS FEEDING HIMSELF (BITE SIZE FOODS), AMBULATING SHORT DISTANCES AND TAKING CARE OF ALL OF HIS IADL'S. HE HAD AN APPT WITH NEUROLOGIST LAST MONTH, NO SIGNS OF DEMENTIA AT THAT TIME. CONFUSION, MEMORY LOSS AND INABILITY TO FOCUS STARTED THIS LAST WEEK. PT'S SON WILL BE HERE ON TUESDAY FROM [facility]. IS CURRENTLY CONTACTING DTR IN [facility] TO UPDATE ON PT'S CONDITION. ANTICIPATES DTR WILL COME TO [place] IN THE NEXT COUPLE OF DAYS. GENTLE EDUCATION ON HOSPICE AND THE SUPPORT THEY CAN PROVIDE AT END STAGES OF DISEASE PROCESS. SHE WILL TAKE HOSPICE IN TO CONSIDERATION IF PT DOESN'T SHOW IMPROVEMENT SOON. PC TO REMAIN AVAILABLE NEEDED.
[2025-07-18 16:20] VITALS: BP 166/86
--- NOTE | 2025-07-18 19:11 | NUR ---
SHIFT SUMMARY PT ORIENTED TO PERSON, PT MUMBLES. IMPULSIVE AT TIMES AND CONFUSED. PT HAS HX OF PARKINSONS. PT ADMITTED DUE TO ACUTE RESPIRATORY FAILURE. PALLIATIVE CARE CONSULTED. PT NOW DNR STATUS. WRIST BAND ON WRIST. PT WORKED WITH SPEECH THERAPY TODAY. SPEECH THERAPY REPORTED PT IS NPO BUT CAN HAVE MEDS CRUSHED IN APPLESAUCE. ASPIRATION PRECAUTIONS IN PLACE. PT HAS LR INFUSING AT 100ML/HR. DR. HERNANDES PUT REPORTED PT IS Q6 BLOOD SUGAR. PT ORAL CARE Q4 W SUCTION. PT BLOOD PRESSURE ELEVATED. PT ON 4L OF O2 VIA N/C. SPO2 91%. PT INC. OF URINE, ATTENDS IN PLACE CHANGED PRN. BED IN LOWEST POSITION. PT IN BED, CALL LIGHT IN REACH. BED ALARM ON. SHAWNA D/C AT 1304. PT GETTING IV ANTIBIOTICS.
[2025-07-18 21:19] VITALS: BP 206/76
[2025-07-19 01:30] VITALS: BP 172/100
[2025-07-19 03:09] VITALS: BP 152/98
--- NOTE | 2025-07-19 05:49 | NUR ---
SHIFT SUMMARY NOC PT A/O TO PERSON. VERY CONFUSED AND HARD TO REDIRECT. PT WAS ATTEMPTING OOB UNSAFE AND SHAWNA VEST REINITIATED AFTER ORDER OBTAINED FROM HOSPITALIST. PT ON 4L/NC SPO2 >92%. PUREWICK IN PLACE FOR INCONTINENCET. IV ABX PER EMAR. LR INFUSING @ 100 ML/HR DUE TO NPO STATUS. BP ELEVATED SYSTOLIC 206 AND HYDRALAZINE GIVEN PER EMAR. Q6H CBG 128 AND THIS SHIFT. PT CURRENTLY RESTING WITH BED ALARM ON, BED IN LOWEST POSITION, AND CALL LIGHT WITHIN REACH.
[2025-07-19 07:33] VITALS: BP 191/78
[2025-07-19 07:33] LABS: BASOPHILS ABSOLUTE AUTO 0.00 K/mm3 (0.00-0.23); BASOPHILS PERCENT AUTO 0 % (0-2); EOSINOPHILS ABSOLUTE AUTO 0.00 K/mm3 (0.00-0.68); EOSINOPHILS PERCENT AUTO 0 % (0-6); Hematocrit 41.0 % (37.0-53.0); Hemoglobin 13.4 g/dL (13.5-17.5); IMMATURE GRAN ABSOLUTE AUTO 0.02 K/mm3 (0.00-0.10); IMMATURE GRAN PERCENT AUTO 0 % (0-1); LYMPHOCYTES ABSOLUTE AUTO 0.37 K/mm3 (0.84-5.20); LYMPHOCYTES PERCENT AUTO 7 % (21-46); MONOCYTES ABSOLUTE AUTO 0.31 K/mm3 (0.16-1.47); MONOCYTES PERCENT AUTO 6 % (4-13); Mean Corpuscular HGB Conc 32.7 g/dL (31.5-36.5); Mean Corpuscular Volume 90 fL (80-100); NEUTROPHILS ABSOLUTE AUTO 4.70 K/mm3 (1.96-9.15); NEUTROPHILS PERCENT AUTO 87 % (41-73); NRBC ABSOLUTE 0.00 K/mm3 (0.00-0.02); NRBC Auto 0.0 /100 WBC (0.0-0.2); Platelet Count 229 K/mm3 (150-400); RDW Coefficient Variation 15.9 % (11.7-14.2); RDW Standard Deviation 52.6 fL (35.1-46.3)
[2025-07-19 07:53] LABS: Anion Gap 3.0 mmol/L (3-11); Blood Urea Nitrogen 20.0 mg/dL (8-24); CO2, Blood 36.0 mmol/L (21-32); Calcium, Blood 8.2 mg/dL (8.5-10.1); Chloride, Blood 98.0 mmol/L (98-108); Creatinine, Blood 0.67 mg/dL (0.60-1.20); Glucose, Blood 115.0 mg/dL (70-99); Potassium, Blood 4.0 mmol/L (3.5-5.5); Sodium, Blood 133.0 mmol/L (136-145)
[2025-07-19 10:33] VITALS: BP 162/79
[2025-07-19 15:27] VITALS: BP 145/70
--- NOTE | 2025-07-19 15:42 | NUR ---
MET WITH PATIENT AND HIS SPOUSE DEBBY. SHE HAD SOME FINANCIAL POA PAPERWORK THAT NEEDED NOTRIZED. NO NOTRY AVAL AT THIS TIME. PROVIDED LIST OF MOBILE NOTRY SERVICES. THERAPUTIC CONVERSATION. DEBBY IS TEARFUL AND SHE RELAYED JACKY RECENT DECLINE.
--- NOTE | 2025-07-19 16:54 | NUR ---
SHIFT SUMMARY PT ORIENTED TO PERSON SELF AND LOCATION, PT MUMBLES. IMPULSIVE AT TIMES AND CONFUSED. PT HAS HX OF PARKINSONS. PT ADMITTED DUE TO ACUTE RESPIRATORY FAILURE. PALLIATIVE CARE CONSULTED. PT WORKED WITH SPEECH THERAPY TODAY. SPEECH THERAPY REPORTED STILL CAN HAVE MEDS CRUSHED IN APPLESAUCE. PT NOW ON PUREED DIET LEVEL 4. W NO STRAWS. PT UPRIGHT 90 DEGREES FOR PO INTAKE. ASPIRATION PRECAUTIONS IN PLACE. DR. HERNANDES REPORTED D/C FLUIDS IV, CONTINUE Q6 BLOOD SUGARS. ORDER PT AND OT EVAL AND TREAT DUE TO HX FALLS AND WEAKNESS. PT ORAL CARE X3 A DAY W SUCTION. PT ON 3L OF O2 VIA N/C. SPO2 97%. PT INC. OF URINE, ATTENDS IN PLACE CHANGED PRN. BED IN LOWEST POSITION. PT IN BED, CALL LIGHT IN REACH. BED ALARM ON. SHAWNA IN PLACE FOR RISK FOR FALLS, ATTEMPTING OOB BEHAVIOR. BANDAID APPLIED TO R SKIN TEAR. SCD S ON. SON AND AT BEDSIDE TODAY.
[2025-07-19 20:00] VITALS: BP 168/87
--- NOTE | 2025-07-20 06:06 | NUR ---
SHIFT SUMMARY: Pt is admitted for ARF and is a DNR. is alert and able to make some needs known. ADLs have been 1-2 depending on activity. No pain or discomfort noted by staff. IV to left AC/ forearm is patent with dressing that is CDI. is in a concepción vest for safety. No issues noted R/T concepción.
[2025-07-20 06:23] VITALS: BP 188/79
[2025-07-20 07:18] VITALS: BP 194/98
[2025-07-20 10:01] LABS: BASOPHILS ABSOLUTE AUTO 0.00 K/mm3 (0.00-0.23); BASOPHILS PERCENT AUTO 0 % (0-2); EOSINOPHILS ABSOLUTE AUTO 0.00 K/mm3 (0.00-0.68); EOSINOPHILS PERCENT AUTO 0 % (0-6); Hematocrit 39.9 % (37.0-53.0); Hemoglobin 13.0 g/dL (13.5-17.5); IMMATURE GRAN ABSOLUTE AUTO 0.03 K/mm3 (0.00-0.10); IMMATURE GRAN PERCENT AUTO 1 % (0-1); LYMPHOCYTES ABSOLUTE AUTO 0.37 K/mm3 (0.84-5.20); LYMPHOCYTES PERCENT AUTO 6 % (21-46); MONOCYTES ABSOLUTE AUTO 0.33 K/mm3 (0.16-1.47); MONOCYTES PERCENT AUTO 6 % (4-13); Mean Corpuscular HGB Conc 32.6 g/dL (31.5-36.5); Mean Corpuscular Volume 90 fL (80-100); NEUTROPHILS ABSOLUTE AUTO 5.17 K/mm3 (1.96-9.15); NEUTROPHILS PERCENT AUTO 88 % (41-73); NRBC ABSOLUTE 0.00 K/mm3 (0.00-0.02); NRBC Auto 0.0 /100 WBC (0.0-0.2); Platelet Count 209 K/mm3 (150-400); RDW Coefficient Variation 15.8 % (11.7-14.2); RDW Standard Deviation 52.6 fL (35.1-46.3)
[2025-07-20 10:27] LABS: Anion Gap 5.0 mmol/L (3-11); Blood Urea Nitrogen 28.0 mg/dL (8-24); CO2, Blood 34.0 mmol/L (21-32); Calcium, Blood 8.3 mg/dL (8.5-10.1); Chloride, Blood 101.0 mmol/L (98-108); Creatinine, Blood 0.63 mg/dL (0.60-1.20); Glucose, Blood 142.0 mg/dL (70-99); Potassium, Blood 3.8 mmol/L (3.5-5.5); Sodium, Blood 136.0 mmol/L (136-145)
[2025-07-20 17:36] VITALS: BP 177/66
--- NOTE | 2025-07-20 17:51 | NUR ---
SHIFT SUMMARY THIS AM, PT AOX3, COOPERATIVE, MADE NEEDS KNOWN. THIS PM PT BELIEVES TO BE ON BATTLESHIP AND THAT "STAFF IS NOT DOING THEIR JOB". MULTIPLE TIMES REINFORCING HE IS IN HOSPITAL. KEEPS SITTING ON EDGE OF BED WITH SHAWNA VEST TIED TO BED. WILL MEDICATE PER EMAR. ON 2L O2 CURRENLTY. TAKES MEDS CRUSHED IN PUREE. BED IN LOWEST POSITION, CALL LIGHT WITHIN REACH. BED ALARM ACTIVE.
[2025-07-20 18:19] VITALS: BP 161/68
[2025-07-20 19:14] VITALS: BP 152/67
[2025-07-21 04:33] VITALS: BP 188/87
[2025-07-21 05:35] LABS: BASOPHILS ABSOLUTE AUTO 0.01 K/mm3 (0.00-0.23); BASOPHILS PERCENT AUTO 0 % (0-2); EOSINOPHILS ABSOLUTE AUTO 0.01 K/mm3 (0.00-0.68); EOSINOPHILS PERCENT AUTO 0 % (0-6); Hematocrit 37.7 % (37.0-53.0); Hemoglobin 12.2 g/dL (13.5-17.5); IMMATURE GRAN ABSOLUTE AUTO 0.03 K/mm3 (0.00-0.10); IMMATURE GRAN PERCENT AUTO 0 % (0-1); LYMPHOCYTES ABSOLUTE AUTO 0.86 K/mm3 (0.84-5.20); LYMPHOCYTES PERCENT AUTO 12 % (21-46); MONOCYTES ABSOLUTE AUTO 0.67 K/mm3 (0.16-1.47); MONOCYTES PERCENT AUTO 9 % (4-13); Mean Corpuscular HGB Conc 32.4 g/dL (31.5-36.5); Mean Corpuscular Volume 91 fL (80-100); NEUTROPHILS ABSOLUTE AUTO 5.55 K/mm3 (1.96-9.15); NEUTROPHILS PERCENT AUTO 78 % (41-73); NRBC ABSOLUTE 0.00 K/mm3 (0.00-0.02); NRBC Auto 0.0 /100 WBC (0.0-0.2); Platelet Count 205 K/mm3 (150-400); RDW Coefficient Variation 15.9 % (11.7-14.2); RDW Standard Deviation 52.5 fL (35.1-46.3)
[2025-07-21 06:24] LABS: Anion Gap 7.0 mmol/L (3-11); Blood Urea Nitrogen 29.0 mg/dL (8-24); CO2, Blood 32.0 mmol/L (21-32); Calcium, Blood 8.1 mg/dL (8.5-10.1); Chloride, Blood 101.0 mmol/L (98-108); Creatinine, Blood 0.67 mg/dL (0.60-1.20); Glucose, Blood 90.0 mg/dL (70-99); Potassium, Blood 3.5 mmol/L (3.5-5.5); Sodium, Blood 136.0 mmol/L (136-145)
[2025-07-21 07:48] VITALS: BP 190/82
[2025-07-21 15:49] VITALS: BP 154/76
--- NOTE | 2025-07-21 16:13 | NUR ---
SHIFT SUMMARY PT AOX2, COOPERATIVE, NOT ABLE TO MAKE NEEDS KNOWN. PT HAS REMAINED TO BED FOR DURATION OF SHIFT. TOLERATING MEDICATION AND PO INTAKE. ON PUREE AND HONEY THINK DIET. HAD TWO LOOSE BMS TODAY. FAMILY WAS BEDSIDE FOR PORTION OF SHIFT. IV INTACT. BED ALARM ACTIVE. HALLUCATIONS STILL ACTIVE. BED IN LOWEST POSITION, CALL LIGHT WITHIN REACH.
[2025-07-21 20:21] VITALS: BP 178/67
[2025-07-22 03:59] VITALS: BP 206/76
[2025-07-22 04:28] VITALS: BP 148/77
[2025-07-22 05:05] LABS: BASOPHILS ABSOLUTE AUTO 0.00 K/mm3 (0.00-0.23); BASOPHILS PERCENT AUTO 0 % (0-2); EOSINOPHILS ABSOLUTE AUTO 0.01 K/mm3 (0.00-0.68); EOSINOPHILS PERCENT AUTO 0 % (0-6); Hematocrit 37.5 % (37.0-53.0); Hemoglobin 12.1 g/dL (13.5-17.5); IMMATURE GRAN ABSOLUTE AUTO 0.03 K/mm3 (0.00-0.10); IMMATURE GRAN PERCENT AUTO 1 % (0-1); LYMPHOCYTES ABSOLUTE AUTO 0.69 K/mm3 (0.84-5.20); LYMPHOCYTES PERCENT AUTO 12 % (21-46); MONOCYTES ABSOLUTE AUTO 0.44 K/mm3 (0.16-1.47); MONOCYTES PERCENT AUTO 8 % (4-13); Mean Corpuscular HGB Conc 32.3 g/dL (31.5-36.5); Mean Corpuscular Volume 89 fL (80-100); NEUTROPHILS ABSOLUTE AUTO 4.42 K/mm3 (1.96-9.15); NEUTROPHILS PERCENT AUTO 79 % (41-73); NRBC ABSOLUTE 0.00 K/mm3 (0.00-0.02); NRBC Auto 0.0 /100 WBC (0.0-0.2); Platelet Count 181 K/mm3 (150-400); RDW Coefficient Variation 15.2 % (11.7-14.2); RDW Standard Deviation 49.8 fL (35.1-46.3)
[2025-07-22 05:34] LABS: Anion Gap 6.0 mmol/L (3-11); Blood Urea Nitrogen 28.0 mg/dL (8-24); CO2, Blood 34.0 mmol/L (21-32); Calcium, Blood 8.2 mg/dL (8.5-10.1); Chloride, Blood 100.0 mmol/L (98-108); Creatinine, Blood 0.61 mg/dL (0.60-1.20); Glucose, Blood 97.0 mg/dL (70-99); Potassium, Blood 3.7 mmol/L (3.5-5.5); Sodium, Blood 136.0 mmol/L (136-145)
--- NOTE | 2025-07-22 05:43 | NUR ---
SHIFT SUMMARY: Pt is admitted for ARF and is a DNR. is alert and able to make some needs known. ADLs have been 1-2 depending on activity. No pain or discomfort noted by staff. IV right forearm. forearm is patent with dressing that is CDI. is in a concepción vest for safety. No issues noted R/T concepción. Attempted to get out of bed a few times during the night but with less frequency than the night prior.
[2025-07-22 07:53] VITALS: BP 173/71
[2025-07-22] MEDS ORDERED: NS 250 ML IV PRN (14:45)
[2025-07-22 15:20] VITALS: BP 162/72
--- NOTE | 2025-07-22 16:05 | NUR ---
PATIENTS SPOUSE TO THE OFFICE TO REVIEW RECENT PAPERWORK. THERAPUTIC LISTENING FROM PC TEAM AND REVIEWED INSTRUCTIONS ON [facility] PAPERWORK PROVIDED BY SPOUSE.
--- NOTE | 2025-07-22 18:11 | NUR ---
SHIFT SUMMARY PT A&O TO SELF ONLY, CONFUSED, HALLUCINATING, AND ATTEMPTING TO AMB OOB UNSAFELY. SHAWNA REAMINS IN PLACE. PT VSS, ON 3L O2 NC, TOLERATING PO, VOIDING, AND DENIED PAIN. PT WORKED W/ PHYSICAL THERAPY THIS SHIFT, SEE THERAPY NOTE. NO OTHER ACUTE CHANGES. CALL LIGHT WITHIN REACH AND BED ALARM ON.
[2025-07-22 20:07] VITALS: BP 162/70
[2025-07-23 04:43] LABS: BASOPHILS ABSOLUTE AUTO 0.00 K/mm3 (0.00-0.23); BASOPHILS PERCENT AUTO 0 % (0-2); EOSINOPHILS ABSOLUTE AUTO 0.01 K/mm3 (0.00-0.68); EOSINOPHILS PERCENT AUTO 0 % (0-6); Hematocrit 37.6 % (37.0-53.0); Hemoglobin 12.2 g/dL (13.5-17.5); IMMATURE GRAN ABSOLUTE AUTO 0.03 K/mm3 (0.00-0.10); IMMATURE GRAN PERCENT AUTO 0 % (0-1); LYMPHOCYTES ABSOLUTE AUTO 0.75 K/mm3 (0.84-5.20); LYMPHOCYTES PERCENT AUTO 11 % (21-46); MONOCYTES ABSOLUTE AUTO 0.46 K/mm3 (0.16-1.47); MONOCYTES PERCENT AUTO 7 % (4-13); Mean Corpuscular HGB Conc 32.4 g/dL (31.5-36.5); Mean Corpuscular Volume 90 fL (80-100); NEUTROPHILS ABSOLUTE AUTO 5.48 K/mm3 (1.96-9.15); NEUTROPHILS PERCENT AUTO 82 % (41-73); NRBC ABSOLUTE 0.00 K/mm3 (0.00-0.02); NRBC Auto 0.0 /100 WBC (0.0-0.2); Platelet Count 187 K/mm3 (150-400); RDW Coefficient Variation 15.1 % (11.7-14.2); RDW Standard Deviation 50.0 fL (35.1-46.3)
--- NOTE | 2025-07-23 04:59 | NUR ---
BIRTH CERTIFICATE CLERK SUMMARY PT A&OX1 (SELF) AND CONFUSED, BUT VSS. PT HAS BEEN ASLEEP ON AND OFF THIS SHIFT. CHEST RISE/RESPIRATIONS NOTED. RENEWAL FOR SHAWNA VEST RESTRAINT OBTAINED. PT REMAINS IN SHAWNA VEST. STILL ATTEMPTING OOB UNSAFELY. PRN SEROQUEL ADMIN X 1 FOR AGITATION W/ GOOD EFFECT. MULTIPLE INCONT VOIDS THIS SHIFT. MALE PUREWICK IN PLACE, DRAINING CLEAR, YELLOW URINE TO SUCTION. REMAINS ON 3L NC. O2 SATS WNL, NO SOB NOTED. TOLERATING THICKENED LIQUIDS WELL. BED RAILS UP X 3, BED IN LOWEST POSITION, BED WHEELS LOCKED, PERSONAL BELONGINGS AND CALL LIGHT WITHIN REACH FOR SAFETY.
[2025-07-23 05:03] LABS: Anion Gap 6.0 mmol/L (3-11); Blood Urea Nitrogen 25.0 mg/dL (8-24); CO2, Blood 33.0 mmol/L (21-32); Calcium, Blood 8.0 mg/dL (8.5-10.1); Chloride, Blood 101.0 mmol/L (98-108); Creatinine, Blood 0.65 mg/dL (0.60-1.20); Glucose, Blood 94.0 mg/dL (70-99); Potassium, Blood 3.8 mmol/L (3.5-5.5); Sodium, Blood 136.0 mmol/L (136-145)
[2025-07-23 07:24] VITALS: BP 192/81
[2025-07-23 10:38] VITALS: BP 130/56
--- NOTE | 2025-07-23 13:26 | NUR ---
MET WITH PT'S DEBBY THIS AFTERNOON; SHE DROPS OFF A COPY OF PT'S ADVANCE DIRECTIVE. AT THIS TIME, PLAN IS HOME HEALTH WITH A F/U AT THE [facility] IN AUG.
[2025-07-23 15:50] VITALS: BP 150/74
--- NOTE | 2025-07-23 17:23 | NUR ---
SHIFT SUMMARY PT REMAINS CONFUSED W/ HALLUCINATIONS AND ATTEMPTS TO AMB OOB UNSAFELY. RESTRAINTS REMAIN IN PLACE. SEROUIL GIVEN. NO ACUTE CHANGES. CALL LIGHT WITHIN REACH AND BED ALARM ON.
[2025-07-23 19:16] VITALS: BP 136/69
--- NOTE | 2025-07-23 20:52 | NUR ---
PT ATTEMPTED TO GET OUT OF BED. PT IN SHAWNA SAFETY VEST. PT HAD THEIR LEGS OVER THE SIDE RAILS AND WHEN THIS FLUE DUST LABORER TRIED TO ATTEMPT TO REDIRECT PT BACK IN BED PT ATTEMPTED TO LUNGE AT THIS NURSE AND TEXTURING MACHINE FIXER. SEROQUEL GIVEN TO PT AND PT BACK IN BED. ATTEMPTED TO USE DISTRACTION METHOD.
[2025-07-24 02:48] VITALS: BP 185/77
--- NOTE | 2025-07-24 04:11 | NUR ---
SHIFT SUMMARY: PT IS AO TO THEIR SELF ONLY. PT IS INCONT. PT Q2 TURNED. PT IS IN A SHAWNA VEST FOR IMPULSIVE BEHAVIOR AND SAFETY. PT WAS AGGITATED AT THE BEGINING OF SHIFT BUT DECREASED THROUGHOUT THE REST OF SHIFT. PT MEDICATED PER EMAR.
[2025-07-24 04:58] LABS: BASOPHILS ABSOLUTE AUTO 0.01 K/mm3 (0.00-0.23); BASOPHILS PERCENT AUTO 0 % (0-2); EOSINOPHILS ABSOLUTE AUTO 0.05 K/mm3 (0.00-0.68); EOSINOPHILS PERCENT AUTO 1 % (0-6); Hematocrit 37.9 % (37.0-53.0); Hemoglobin 12.3 g/dL (13.5-17.5); IMMATURE GRAN ABSOLUTE AUTO 0.03 K/mm3 (0.00-0.10); IMMATURE GRAN PERCENT AUTO 0 % (0-1); LYMPHOCYTES ABSOLUTE AUTO 0.99 K/mm3 (0.84-5.20); LYMPHOCYTES PERCENT AUTO 14 % (21-46); MONOCYTES ABSOLUTE AUTO 0.53 K/mm3 (0.16-1.47); MONOCYTES PERCENT AUTO 7 % (4-13); Mean Corpuscular HGB Conc 32.5 g/dL (31.5-36.5); Mean Corpuscular Volume 88 fL (80-100); NEUTROPHILS ABSOLUTE AUTO 5.56 K/mm3 (1.96-9.15); NEUTROPHILS PERCENT AUTO 78 % (41-73); NRBC ABSOLUTE 0.00 K/mm3 (0.00-0.02); NRBC Auto 0.0 /100 WBC (0.0-0.2); Platelet Count 190 K/mm3 (150-400); RDW Coefficient Variation 14.7 % (11.7-14.2); RDW Standard Deviation 47.8 fL (35.1-46.3)
[2025-07-24 05:36] LABS: Anion Gap 5.0 mmol/L (3-11); Blood Urea Nitrogen 22.0 mg/dL (8-24); CO2, Blood 34.0 mmol/L (21-32); Calcium, Blood 8.2 mg/dL (8.5-10.1); Chloride, Blood 98.0 mmol/L (98-108); Creatinine, Blood 0.63 mg/dL (0.60-1.20); Glucose, Blood 90.0 mg/dL (70-99); Potassium, Blood 3.6 mmol/L (3.5-5.5); Sodium, Blood 133.0 mmol/L (136-145)
[2025-07-24 08:27] VITALS: BP 193/72
[2025-07-24 10:28] VITALS: BP 126/73
[2025-07-24] MEDS ORDERED: AMOCLA875 PO (11:06)
[2025-07-24] MEDS ORDERED: Sinemet 25-1001 EACH PO (11:08)
--- NOTE | 2025-07-24 16:32 | NUR ---
DISCHARGE PT DISCAHRGED VIA W/C ACCOMPANIED BY PHARMACY GRAD INTERN. PT NEEDED 1 ASSIST INTO THE W/C. PT IV REMOVEDF WITH CANNULA INTACT. ASKED PT TO ENGAGE THE CHILD SAFETY LOCKS IN THE CAR BEFORE GOING HOME. PT WENT AND GOT HIS PERSCRIPTIONS BEFORE TAKING HIM HOME. CARE ONGOING.
== END 2025-07-24 15:47 | disposition home health service (06) | DRG 177 ==
LOC: ER 13:13 → ERHOLD 18:28 → MEDS 18:28
PROVIDERS: Family Medicine; Internal Medicine; Nurse Practitioner Acute Care; Registered Nurse; Student in an Organized Health Care Education/Training Program; ADMIT Student in an Organized Health Care Education/Training Program
DX: J69.0 Pneumonitis due to inhalation of food and vomit (principal); G92.8 Other toxic encephalopathy; J96.21 Acute and chronic respiratory failure with hypoxia; J96.02 Acute respiratory failure with hypercapnia; J44.0 Chronic obstructive pulmonary disease with (acute) lower respiratory infection; J44.1 Chronic obstructive pulmonary disease with (acute) exacerbation; F02.818 Dementia in other diseases classified elsewhere, unspecified severity, with other behavioral disturbance; F03.94 Unspecified dementia, unspecified severity, with anxiety; F03.93 Unspecified dementia, unspecified severity, with mood disturbance; H26.9 Unspecified cataract; G20.A1 Parkinson's disease without dyskinesia, without mention of fluctuations; I10 Essential (primary) hypertension; Z66 Do not resuscitate; Z78.1 Physical restraint status; I16.0 Hypertensive urgency; Z99.81 Dependence on supplemental oxygen; Z98.890 Other specified postprocedural states; Z87.891 Personal history of nicotine dependence
CPT/HCPCS: 36415; 71045; 71260; 80048; 80053; 81001; 82803; 82947; 83735; 83880; 84145; 84484; 85025; 85027; 85379; 87086; 87493; 87637; 92526; 92610; 93005; 93010; 94640; 94664; 94760; 96365; 96375; 97110; 97161; 97165; 97530; 97535; 99285-25; A9270; J0295; J0360; J0456; J0696; J1200; J1650; J2919; J3360; J7040; J7050; J7120; J7512; Q9967